=== PATIENT | female | born 1965 | race American Indian/Alaskan Native ===

== ENCOUNTER 2019-04-12 16:00 | Inpatient (IN) | payer MEDICAID ==
[2019-04-12] MEDS ORDERED: SODIUM CHLORIDE 0.9% 1000 ML IV SOLN IV ONE (16:53)
[2019-04-12] MEDS ORDERED: HYDROcodone/ACETAMINOPHEN 5-325 MG TAB PO ONE (16:55)
[2019-04-12] MEDS ORDERED: ACETAMINOPHEN 325 MG TAB PO ONE ×2 (16:55→17:18)
[2019-04-12] MEDS ORDERED: BENZONATATE 100 MG CAP PO ONE (16:55)
--- NOTE | 2019-04-12 17:26 | Emergency Department Report ---
ED Fever HPI - General Chief Complaint: Fever Stated Complaint: COUGH/CHEST PAIN/BODY ACHES Time Seen by Provider: 04/12/19 16:42 Source: patient Exam Limitations: no limitations - History of Present Illness Initial Comments: 53-year-old female the past medical history CHF, cancer, COPD, GERD, migraines, and elevated cholesterol presents to the hospital complains of fever and cough since waking up this a.m. Cough is nonproductive. Positive generalized body aches. Positive chest pain and headache with coughing. Denies nausea, vomiting, abdominal pain, diarrhea, or dysuria. Decreased appetite and decreased by mouth intake today. Patient states her sick grandchild was recently visiting. She denies recent travel. Her primary care doctor and plant taxonomist are affiliated with [facility]. Patient does not know her baseline ejection fraction. Does not smoke cigarettes and denies stent or cardiac bypass surgery. Patient did not receive a flu shot this season. ED Review of Systems ROS: Stated complaint: COUGH/CHEST PAIN/BODY ACHES Other details as noted in HPI Comment: All other systems reviewed and negative ED Past Medical Hx - Past Medical History Previous Medical History?: Yes Hx Hypertension: Yes Hx CVA: No Hx Heart Attack/AMI: No Hx Congestive Heart Failure: No Hx Diabetes: No Hx Deep Vein Thrombosis: No Hx Pulmonary Embolism: No Hx GERD: Yes Hx Liver Disease: No Hx Renal Disease: No Hx of Cancer: Yes (stomach) Hx Sickle Cell Disease: No Hx Arthritis: No Hx Headaches / Migraines: Yes Hx Seizures: No Hx Kidney Stones: No Hx Psychiatric Treatment: No Hx Asthma: Yes Hx COPD: Yes Hx Tuberculosis: No Hx Dementia: No Hx HIV: No Additional medical history: high cholesterol - Surgical History Past Surgical History?: Yes Hx Coronary Stent: No Hx Open Heart Surgery: No Hx Pacemaker: No Hx Internal Defibrillator: No Hx Cholecystectomy: No Hx Appendectomy: No Hx Breast Surgery: No Additional Surgical History: fibroid,hysterectomy - Social History Smoking Status: Never Smoker Substance Use Type: None ED Physical Exam - General Limitations: No Limitations - Other Other exam information: General: No acute distress Head: Atraumatic Eyes: normal appearance ENT: Moist mucous membranes Neck: Normal appearance, no midline tenderness Chest: cough with deep inspiration. No crackles, rales, or audible wheezing CV: Regular rate and rhythm Abdomen: Soft, normal bowel sounds, nontender, nondistended, no rebound or guarding Back: Normal inspection Extremity: Normal inspection infection, full range of motion, no calf tenderness or leg edema. Neuro: Alert O x 3, no facial asymmetry, speech clear, no gross motor sensory deficit Psych: Appropriate behavior Skin: No rash ED Course Vital Signs 04/12/19 04/12/19 04/12/19 16:14 16:19 17:00 Temperature 101.1 F H Pulse Rate 130 H 130 H 130 H Respiratory 12 18 18 Rate Blood Pressure 128/91 128/91 Blood Pressure 128/91 [Right] O2 Sat by Pulse 98 100 99 Oximetry 04/12/19 04/12/19 04/12/19 18:00 19:17 20:23 Temperature 99.0 F Pulse Rate 119 H 114 H 115 H Respiratory 25 H 18 20 Rate Blood Pressure 122/91 Blood Pressure 112/75 119/74 [Right] O2 Sat by Pulse 95 95 97 Oximetry 04/12/19 04/12/19 21:07 23:02 Temperature 99.4 F 101.4 F H Pulse Rate 114 H 112 H Respiratory 20 18 Rate Blood Pressure Blood Pressure 120/73 136/89 [Right] O2 Sat by Pulse 100 100 Oximetry ED Medical Decision Making - Lab Data Result diagrams: 04/12/19 16:57 04/12/19 16:57 - EKG Data -: EKG Interpreted by Nd EKG shows normal: sinus rhythm, ST-T waves (no stemi) Rate: tachycardia (122) - Radiology Data Radiology results: report reviewed CHEST 1 VIEW INDICATION / CLINICAL INFORMATION: fever, cough. COMPARISON: None available. FINDINGS: SUPPORT DEVICES: None. HEART / MEDIASTINUM: No significant abnormality. LUNGS / PLEURA: No significant pulmonary or pleural abnormality. No pneumothorax. ADDITIONAL FINDINGS: No significant additional findings. IMPRESSION: 1. No acute findings. - Medical Decision Making Patient has been ER for several hours receiving 500 mL boluses of normal saline and medications for fever reduction and has remained tachycardic despite ED treatment. Patient did finally produce a urinalysis shows a high specific gravity so possibility of dehydration as the cause of her persistent tachycardia. Given comorbidities and inability to normalize vital signs in the ED and recurrent fever patient will be admitted to the hospital for further workup. Cultures pending. CT angiogram chest negative for pulmonary embolism or infiltrate. - Differential Diagnosis fever, pneumonia, viral, uti, dehdyration, myocarditis, endocarditis Critical Care Time: No Critical care attestation.: If time is entered above; I have spent that time in minutes in the direct care of this critically ill patient, excluding procedure time. ED Disposition Clinical Impression: Viral syndrome, Fever, Tachycardia Disposition: OP ADMIT IP TO THIS HOSP Is pt being admited?: Yes Condition: Stable Time of Disposition: 23:43
[2019-04-12 17:31] LABS: Alanine Aminotransferase 12 units/L (7-56); Albumin 4.4 g/dL (3.9-5); BUN/Creatinine Ratio 12; Basophils # (Auto) 0.1 K/mm3 (0.0-0.1); Basophils % (Auto) 0.7 % (0.0-1.8); Blood Urea Nitrogen 13 mg/dL (7-17); Calcium 9.5 mg/dL (8.4-10.2); Eosinophils # (Auto) 0.1 K/mm3 (0.0-0.4); Eosinophils % (Auto) 1.2 % (0.0-4.3); Hematocrit 34.5 % (30.3-42.9); Hemoglobin 11.1 gm/dl (10.1-14.3); Hemolysis Index 4; Lymphocytes # (Auto) 0.6 K/mm3 (1.2-5.4); Lymphocytes % (Auto) 7.7 % (13.4-35.0); Mean Corpuscular HGB Conc 32 % (30-34); Mean Corpuscular Volume 81 fl (79-97); Monocytes # (Auto) 0.4 K/mm3 (0.0-0.8); Monocytes % (Auto) 4.5 % (0.0-7.3); Platelet Count 300 K/mm3 (140-440); Red Blood Count 4.28 M/mm3 (3.65-5.03); Red Cell Distribution Width 16.9 % (13.2-15.2)
--- NOTE | 2019-04-12 17:37 | XRay Report ---
CHEST 1 VIEW INDICATION / CLINICAL INFORMATION: fever, cough. COMPARISON: None available. FINDINGS: SUPPORT DEVICES: None. HEART / MEDIASTINUM: No significant abnormality. LUNGS / PLEURA: No significant pulmonary or pleural abnormality. No pneumothorax. ADDITIONAL FINDINGS: No significant additional findings. IMPRESSION: 1. No acute findings. Signer Name: Mitch Gomes MD Signed: 04/12/2019 5:33 PM Workstation Name: [id number]
[2019-04-12] MEDS ORDERED: POTASSIUM CHLORIDE ER 20 MEQ TAB PO ONE (18:18)
[2019-04-12] MEDS ORDERED: SODIUM CHLORIDE 0.9% 500 ML 500 ML ONE (19:55)
[2019-04-12] MEDS ORDERED: SODIUM CHLORIDE 0.9% 500 ML 500 ML IV ONE (19:58)
[2019-04-12] MEDS ORDERED: MORPHINE 4 MG/1 ML INJ IV ONE (21:02)
[2019-04-12] MEDS ORDERED: ONDANSETRON 4 MG/2 ML INJ IV ONE (21:02)
[2019-04-12] MEDS ORDERED: ACETAMINOPHEN 325 MG TAB ONE (22:59)
[2019-04-12] MEDS ORDERED: IBUPROFEN 800 MG TAB PO ONE (23:07)
[2019-04-12 23:19] LABS: Bacteria,Urine 1+ /HPF (Negative); Bilirubin,Urine NEG (Negative); Blood,Urine NEG (Negative); Color,Urine Yellow (Yellow); Urobilinogen,Urine < 2.0 mg/dL (<2.0)
--- NOTE | 2019-04-12 23:23 | Cat Scan Report ---
CT angiography of the chest with 2-D reconstructions INDICATION: Cough, fever, tachycardia Thin section axial images were obtained as well as 2-D reformatted MIP images in all 3 planes FINDINGS: There is no hilar or mediastinal adenopathy. No pleural or pericardial effusion. Lung windo ws show no nodules, masses or infiltrates. There is no thoracic aortic aneurysm or dissection present . Routine axial images as well as 2-D reconstructions through the pulmonary arteries show no evidence of emboli. IMPRESSION: Negative chest CTA Automated exposure control was utilized to diminish radiation dose. Signer Name: Som Aranda MD Signed: 04/12/2019 11:19 PM Workstation Name: [id number]
[2019-04-12 23:25] LABS: Amphetamine Screen,Urine PRESUMPTIVE NEGATIVE; Benzodiazepines Screen,Urine PRESUMPTIVE NEGATIVE; Cannabinoid Screen,Urine PRESUMPTIVE NEGATIVE; Cocaine Screen,Urine PRESUMPTIVE NEGATIVE; Methadone Screen,Urine PRESUMPTIVE NEGATIVE
[2019-04-12 23:39] LABS: Opiate Screen,Urine PRESUMPTIVE POSITIVE
--- NOTE | 2019-04-13 00:40 | History and Physical Report ---
History of Present Illness Date of examination: 04/12/19 History of present illness: 53 -year-old woman with a history of CHF, cancer, COPD, GERD, migraine, hyperlipidemia comes emergency room complaining of: Nonproductive cough, generalized weakness, shortness of breath and body aches, headache decrease appetite, . Her grand-daughter is sick at home. Review Of Systems: Constitutional: no weight loss, fever, chills Ears, eyes, nose, mouth and throat: no nasal congestion, no nasal discharge, no sinus pressure, blurry vision, diplopia Neck: No neck pain or rigidity. Cardiovascular: No palpitations, chest pain Respiratory: + shortness of breath, cough Gastrointestinal: No hematochezia, abdominal pain Genitourinary : no dysuria, frequency Musculoskeletal: no muscle ache , joint pain Integumentary: no rash, no pruritis Neurological: no parathesias, focal weakness Endocrine: no cold or heat intolerance, no polyuria or polydipsia Hematologic/Lymphatic: no easy bruising, no easy bleeding, no gland swelling Allergic/Immunologic: no urticaria, no angioedema. PAST MEDICAL HISTORY: CHF, cancer, COPD, GERD, migraine, hyperlipidemia PAST SURGICAL HISTORY: Hysterectomy SOCIAL HISTORY: Denies alcohol, tobacco, drugs FAMILY HISTORY: Hypertension Past History Past Medical History: No medical history Medications and Allergies Allergies Allergy/AdvReac Type Severity Reaction Status Date / Time No Known Allergies Allergy Unverified 04/12/19 16:56 Exam - Physical Exam Narrative exam: Gen. appearance: Patient lying in bed, no apparent distress HEENT: Normocephalic, atraumatic, pupils equally round and reactive to light, extraocular movement intact, and no sclericterus,. No JVD or thyromegaly or nodule,neck supple, no carotid bruit ,mucous membranes moist, no exudate or erythema Heart: S1, S2, regular rate and rhythm Lungs: Clear bilaterally, breathing comfortable Abdomen: Positive bowel sounds, nontender, nondistended, no organomegaly Extremity: no edema, cyanosis, clubbing Skin: No rash, nodules, warm, dry Neuro: speech is fluent, moves extremities, sensory intact - Constitutional Vitals: Temp Pulse Resp BP Pulse Ox 101.4 F H 112 H 18 136/89 100 04/12/19 23:02 04/12/19 23:02 04/12/19 23:02 04/12/19 23:02 04/12/19 23:02 Results - Labs CBC & Chem 7: 04/13/19 05:20 04/13/19 05:20 Labs: Abnormal lab results 04/12/19 04/12/19 04/12/19 Range/Units 16:57 16:57 16:57 MCH 26 L (28-32) pg RDW 16.9 H (13.2-15.2) % Lymph % (Auto) 7.7 L (13.4-35.0) % Lymph # 0.6 L (1.2-5.4) K/mm3 Seg Neutrophils % 85.9 H (40.0-70.0) % VBG pH 7.442 H (7.320-7.420) Potassium 3.3 L (3.6-5.0) mmol/L Chloride 96.7 L (98-107) mmol/L Lactic Acid (0.7-2.0) mmol/L Alkaline Phosphatase 149 H (35-129) units/L Total Protein 8.5 H (6.3-8.2) g/dL Ur Specific [place] (1.003-1.030) 04/12/19 04/12/19 Range/Units 19:21 23:01 MCH (28-32) pg RDW (13.2-15.2) % Lymph % (Auto) (13.4-35.0) % Lymph # (1.2-5.4) K/mm3 Seg Neutrophils % (40.0-70.0) % VBG pH (7.320-7.420) Potassium (3.6-5.0) mmol/L Chloride (98-107) mmol/L Lactic Acid 0.60 L (0.7-2.0) mmol/L Alkaline Phosphatase (35-129) units/L Total Protein (6.3-8.2) g/dL Ur Specific [place] 1.042 H (1.003-1.030) - Imaging and Cardiology EKG: image reviewed Chest x-ray: report reviewed CT scan - chest: report reviewed Assessment and Plan Assessment SIRS Start emperic IV Levaquin, tamiflu, follow cultures consult infectious disease CHF, ?diastolic, chronic stable, continue current medications Migraine/hyperlipidemia Continue outpatient medications
[2019-04-13] MEDS ORDERED: ONDANSETRON 4 MG/2 ML INJ IV PRN (01:44)
[2019-04-13] MEDS: ACETAMINOPHEN 325 MG TAB PO PRN ×2 (02:07→06:25)
[2019-04-13] MEDS: OSELTAMIVIR 75 MG CAP PO SCH ×2 (02:33→09:33)
[2019-04-13 06:06] LABS: Basophils % (Auto) 0.3 % (0.0-1.8); Eosinophils % (Auto) 0.8 % (0.0-4.3); Hematocrit 30.7 % (30.3-42.9); Hemoglobin 9.9 gm/dl (10.1-14.3); Lymphocytes # (Auto) 0.5 K/mm3 (1.2-5.4); Lymphocytes % (Auto) 11.3 % (13.4-35.0); Mean Corpuscular HGB Conc 32 % (30-34); Mean Corpuscular Volume 82 fl (79-97); Monocytes # (Auto) 0.3 K/mm3 (0.0-0.8); Monocytes % (Auto) 7.4 % (0.0-7.3); Platelet Count 248 K/mm3 (140-440); Red Blood Count 3.77 M/mm3 (3.65-5.03); Red Cell Distribution Width 17.6 % (13.2-15.2)
[2019-04-13 06:12] LABS: BUN/Creatinine Ratio 12; Blood Urea Nitrogen 12 mg/dL (7-17); Calcium 8.6 mg/dL (8.4-10.2); Hemolysis Index 2
[2019-04-13 09:42] VITALS: BP 127/85
[2019-04-13] MEDS ORDERED: ENOXAPARIN 40 MG/0.4 ML INJ SUB-Q SCH (10:00)
[2019-04-13] MEDS ORDERED: FLUTICASONE PROPIONATE NASAL SPRAY 16 GM NS SCH (12:00)
--- NOTE | 2019-04-13 15:10 | Discharge Summary ---
Providers - Providers Date of Admission: 04/13/19 00:07 Date of discharge: 04/13/19 Attending physician: ESTER MARSH 04/13/19 01:44 Consult to Physician [CONS] Routine Comment: Consulting Provider: MONICA ALCAZAR Physician Instructions: Reason For Exam: sirs Primary care physician: [employer]SEM[employer]ER Hospitalization Condition: Stable Hospital course: Discharge diagnosis: /SIRS, likely from URI influenza test negative CXR clear, UA normal /CHF, ?diastolic, chronic stable, continue current medications /Migraine/hyperlipidemia Continue outpatient medications Disposition: DC-01 TO HOME OR SELFCARE Time spent for discharge: 34 minutes Core Measure Documentation - Palliative Care Palliative Care/ Comfort Measures: Not Applicable - Core Measures Any of the following diagnoses?: none Exam - Constitutional Vitals: Temp Pulse Resp BP Pulse Ox 98.2 F 77 18 127/85 100 04/13/19 08:06 04/13/19 05:50 04/13/19 08:06 04/13/19 08:06 04/13/19 05:50 General appearance: Present: no acute distress, obese - EENT Eyes: Present: PERRL ENT: hearing intact, clear oral mucosa - Neck Neck: Present: supple, normal ROM - Respiratory Respiratory effort: normal Respiratory: bilateral: CTA - Cardiovascular Heart Sounds: Present: S1 & S2. Absent: rub, click - Extremities Extremities: pulses symmetrical, No edema Peripheral Pulses: within normal limits - Abdominal General gastrointestinal: Present: soft, non-tender, non-distended, normal bowel sounds - Integumentary Integumentary: Present: clear, warm, dry - Musculoskeletal Musculoskeletal: gait normal, strength equal bilaterally - Psychiatric Psychiatric: appropriate mood/affect, intact judgment & insight - Neurologic Neurologic: CNII-XII intact, moves all extremities Plan Activity: advance as tolerated Weight Bearing Status: Weight Bear as Tolerated Diet: low fat, diabetic Special Instructions: record blood sugar diary Follow up with: PRIMARY CARE, [Primary Care Provider] - 7 Days Prescriptions: Azithromycin [Zithromax] 250 mg PO DAILY #4 tablet
[2019-04-13] MEDS ORDERED: INSULIN LISPRO 100 UNIT/ML SUB-Q SCH (16:30)
--- NOTE | 2019-04-13 16:54 | Consultation ---
History of Present Illness - Reason for Consult Consult date: 04/13/19 - History of Present Illness 53 yo F PMHx CHF, COPD, GERD, HLD admitted to the hospital complaining of acute onset SOB adn cough with sputum production. She notes that the symptms began yesterday, and that on Thursday she was in her usualy state of health. She complains of fevers and non-productive cough, however she does feel congested. She reports that her grandson was visiting over the weekend and was sick with an upper respiratory illness similar to hers. Denies any othe symptoms. Febrile on admission, normal white count. Blood cultures negative to date. Currently receiving levofloxacin and Tamiflu. Imaging personally reviewed: CTPE - normal Review of systems: Bold if positive; otherwise negative GENERAL: fever, chills, weight loss, fatigue, night sweats EYES: blurry vision, eye pain HENT: headache, hearing loss, sore throat, dysphagia, sinus pain CARDIO: chest pain, palpitations, orthopnea PULM: shortness of breath, wheezing, cough, sputum, hemoptysis GI: nausea, vomiting, diarrhea, abdominal pain, blood in stool : urinary frequency, urgency, dysuria, urethral discharge MSK: joint pain, back pain, swelling SKIN: rash, redness HEME: easy bruising, bleeding Past History Past Medical History: other (See HPI) Past Surgical History: No surgical history Social history: denies: alcohol abuse Family history: hypertension Medications and Allergies Allergies Allergy/AdvReac Type Severity Reaction Status Date / Time No Known Allergies Allergy Unverified 04/12/19 16:56 Home Medications Medication Instructions Recorded Confirmed Last Taken Type AtorvaSTATin [Lipitor] 40 mg PO QHS 04/13/19 04/13/19 Unknown History Azithromycin [Zithromax] 250 mg PO DAILY #4 tablet 04/13/19 Unknown Rx Fluticasone [Flonase] 50 mcg PO PRN 04/13/19 04/13/19 Unknown History Lispro Insulin [HumaLOG] 12 units SUB-Q QAC 04/13/19 04/13/19 Unknown History Metformin HCl [metFORMIN] 1,000 units PO BID 04/13/19 04/13/19 Unknown History carvediloL [Coreg] 25 mg PO QDAY 04/13/19 04/13/19 Unknown History Active Meds: Active Medications Acetaminophen (Tylenol) 650 mg PO Q4H PRN PRN Reason: Pain MILD(1-3)/Fever >100.5/HINES Last Admin: 04/13/19 06:25 Dose: 650 mg Documented by: Atorvastatin Calcium (Lipitor) 40 mg PO QHS [facility] Enoxaparin Sodium (Enoxaparin) 40 mg SUB-Q QDAY [facility] Last Admin: 04/13/19 09:31 Dose: 40 mg Documented by: Fluticasone Propionate (Flonase) 50 mcg NS PRN [facility] Levofloxacin/Dextrose (Levaquin 750mg/150ml) 750 mg in 150 mls @ 100 mls/hr IV Q24HR [facility]; Protocol Last Admin: 04/13/19 09:31 Dose: 100 mls/hr Documented by: Insulin Human Lispro (Humalog) 12 unit SUB-Q QAC [facility] Metformin HCl (Glucophage) 1,000 mg PO BIDDIAB [facility] Last Admin: 04/13/19 16:40 Dose: 1,000 mg Documented by: Ondansetron HCl (Zofran) 4 mg IV Q8H PRN PRN Reason: Nausea And Vomiting Oseltamivir Phosphate (Tamiflu) 75 mg PO BID [facility] Stop: 04/17/19 10:01 Last Admin: 04/13/19 09:33 Dose: 75 mg Documented by: Sodium Chloride (Sodium Chloride Flush Syringe 10 Ml) 10 ml IV BID [facility] Last Admin: 04/13/19 09:32 Dose: 10 ml Documented by: Sodium Chloride (Sodium Chloride Flush Syringe 10 Ml) 10 ml IV PRN PRN PRN Reason: LINE FLUSH Physical Examination - Physical Exam Narrative exam: General Normal appearance, well developed, no acute distress Eyes - PERRLA, EOM intact ENT - Moist mucous membranes, no lymphadenopathy Neck - No noticeable or palpable swelling, redness or rash around throat or on face Lymph Nodes - No lymphadenopathy Cardiovascular - RRR no m/r/g, no JVD, no carotid bruits Lungs - Clear to auscultation, no use of accessory muscles, no crackles or wheezes. Skin - No rashes, skin warm and dry, no erythematous areas Abdomen - Normal bowel sounds, abdomen soft and nontender Extremities - No edema, cyanosis or clubbing Musculoskeletal - 5/5 strength, normal range of motion, no swollen or erythematous joints. Neurological Alert and oriented x 3, CN 2-12 grossly intact. - Constitutional Vitals: Vital Signs Temp Pulse Resp BP Pulse Ox 98.2 F 77 18 127/85 100 04/13/19 08:06 04/13/19 05:50 04/13/19 08:06 04/13/19 08:06 04/13/19 05:50 Temperature -Last 24 Hours Temperature 98.2 F Temperature 98.3 F Temperature 101.4 F Temperature 99.4 F Temperature 99.0 F Results - Labs CBC & Chem 7: 04/13/19 05:20 04/13/19 05:20 Labs: Abnormal lab results 04/12/19 04/12/19 04/12/19 Range/Units 16:57 16:57 16:57 WBC (4.5-11.0) K/mm3 Hgb (10.1-14.3) gm/dl MCH 26 L (28-32) pg RDW 16.9 H (13.2-15.2) % Lymph % (Auto) 7.7 L (13.4-35.0) % [place] % (Auto) (0.0-7.3) % Lymph # 0.6 L (1.2-5.4) K/mm3 Seg Neutrophils % 85.9 H (40.0-70.0) % VBG pH 7.442 H (7.320-7.420) Potassium 3.3 L (3.6-5.0) mmol/L Chloride 96.7 L (98-107) mmol/L Glucose (65-100) mg/dL POC Glucose (70-105) Lactic Acid (0.7-2.0) mmol/L Alkaline Phosphatase 149 H (35-129) units/L Total Protein 8.5 H (6.3-8.2) g/dL Ur Specific [place] (1.003-1.030) 04/12/19 04/12/19 04/13/19 Range/Units 19:21 23:01 05:20 WBC 4.4 L (4.5-11.0) K/mm3 Hgb 9.9 L (10.1-14.3) gm/dl MCH 26 L (28-32) pg RDW 17.6 H (13.2-15.2) % Lymph % (Auto) 11.3 L (13.4-35.0) % [place] % (Auto) 7.4 H (0.0-7.3) % Lymph # 0.5 L (1.2-5.4) K/mm3 Seg Neutrophils % 80.2 H (40.0-70.0) % VBG pH (7.320-7.420) Potassium (3.6-5.0) mmol/L Chloride (98-107) mmol/L Glucose (65-100) mg/dL POC Glucose (70-105) Lactic Acid 0.60 L (0.7-2.0) mmol/L Alkaline Phosphatase (35-129) units/L Total Protein (6.3-8.2) g/dL Ur Specific [place] 1.042 H (1.003-1.030) 04/13/19 04/13/19 Range/Units 05:20 16:43 WBC (4.5-11.0) K/mm3 Hgb (10.1-14.3) gm/dl MCH (28-32) pg RDW (13.2-15.2) % Lymph % (Auto) (13.4-35.0) % [place] % (Auto) (0.0-7.3) % Lymph # (1.2-5.4) K/mm3 Seg Neutrophils % (40.0-70.0) % VBG pH (7.320-7.420) Potassium (3.6-5.0) mmol/L Chloride (98-107) mmol/L Glucose 133 H (65-100) mg/dL POC Glucose 203 H (70-105) Lactic Acid (0.7-2.0) mmol/L Alkaline Phosphatase (35-129) units/L Total Protein (6.3-8.2) g/dL Ur Specific [place] (1.003-1.030) Assessment and Plan Cultures Blood culture 04/12/19 no growth to date Assessment: 53 yo F PMHx CHF, COPD, GERD, HLD admitted with SOB likely secondary to viral URI 1. Viral URI - flu negative, would stop Tamiflu. Chest CT normal, would stop levofloxacin. At risk of post-viral bacterial pneumonia, instructed to return if symptoms worsen. Treat symptomatically. 2. COPD - at higher risk of infections and exacerbations 3. CHF 4. HLD Recs: - stop levofloxacin and Tamiflu - OK for discharge from infectious disease perspective. Discussed with Dr. Mckenzie Thank you for the consult, we will continue to follow. [facility] ([facility]) M: [phone] O: [phone] F: [phone]
[2019-04-13] MEDS ORDERED: metFORMIN 500 MG TAB PO SCH (17:00)
[2019-04-13] MEDS ORDERED: METFORMIN HCL PO SCH (22:00)
[2019-04-14] MEDS ORDERED: carvediloL 25 MG TAB PO SCH (10:00)
== END 2019-04-13 18:48 | disposition home or self-care (01) | DRG 153 ==
LOC: ED 16:00 → 4A 04-13 00:07
PROVIDERS: ADMIT Internal Medicine; ATTEND Internal Medicine
DX: J06.9 Acute upper respiratory infection, unspecified (principal); G43.909 Migraine, unspecified, not intractable, without status migrainosus; I50.32 Chronic diastolic (congestive) heart failure; K21.9 Gastro-esophageal reflux disease without esophagitis; E78.00 Pure hypercholesterolemia, unspecified; J44.9 Chronic obstructive pulmonary disease, unspecified; Z85.028 Personal history of other malignant neoplasm of stomach; Z90.710 Acquired absence of both cervix and uterus; Z80.9 Family history of malignant neoplasm, unspecified; Z82.49 Family history of ischemic heart disease and other diseases of the circulatory system
CPT/HCPCS: 36415; 71045; 71275; 80048; 80053; 80307; 81001; 82140; 82805; 82962; 85025; 87040; 87086; 87400; 93005; 93010; G0378; J1650; J1956; J2270; J2405; J7030; J7040; Q9967